=== PATIENT | female | born 1945 | race Caucasian/White ===

== ENCOUNTER 2016-12-24 07:25 | Day surgery (SDC) | payer MEDICARE ==
[~2016-12-24 07:25] MED LIST: FENTANYL 250 MCG/5 ML AMP IV PRN; LACTATED RINGERS 1,000 ML IV SCH; LIDOCAINE Viscous 2% 15 ML UDCUP PO PRN; MIDAZOLAM HCL 5 MG/5 ML VIAL IV PRN
[2016-12-24] MEDS ORDERED: IV START KIT ONE (07:44)
[2016-12-24] MEDS ORDERED: LACTATED RINGERS 1,000 ML ONE (07:44)
[2016-12-24] MEDS ORDERED: MIDAZOLAM HCL 5 MG/5 ML VIAL ONE (08:35)
[2016-12-24] MEDS ORDERED: FENTANYL 100 MCG/2 ML VIAL ONE (08:35)
[2016-12-24] MEDS ORDERED: LIDOCAINE Viscous 2% 15 ML UDCUP ONE (08:35)
[2016-12-24 13:40] LABS: HELICOBACTER PYLORII DETECTION NEGATIVE (NEGATIVE)
--- NOTE | 2016-12-27 09:56 | SURGPATH ---
[facility] [address] [place] [id number] Patient Name: WES MACIEL MR#: [id number] : 1945 Gender: F Specimen #: [id number] Collected: 12/24/2016 Received: 12/26/2016 Reported: 12/27/2016 Submitting Phys: JUANY HERRING Copy To Phys: AMY CORTEZ [facility] Clinical History / Pre-Operative Diagnosis: Rule out gastritis Specimen Source / Surgical Procedure Performed: Antral biopsy Interpretation: ANTRUM, BIOPSY: - NO PATHOLOGIC ABNORMALITY Electronically Signed Out Jeff Manning M.D. Gross Description: The specimen is received in formalin labeled with the patient's name and "antrum ". The specimen consists of a single fragment of nicolas soft tissue, 0.4 cm in greatest dimension. Submitted in toto in one cassette FABIAN Gutierres Microscopic Description: Microscopic performed. 1: [id number] R10.9
== END 2016-12-24 10:00 | disposition home or self-care (01) ==
LOC: SDC 07:25
PROVIDERS: ATTEND Internal Medicine Gastroenterology
PROC: 0D748ZZ Dilation of Esophagogastric Junction, Via Natural or Artificial Opening Endoscopic (ICD-10-PCS; principal; 2016-12-24)
PROC: 0DB68ZX Excision of Stomach, Via Natural or Artificial Opening Endoscopic, Diagnostic (ICD-10-PCS; 2016-12-24)
DX: Q39.4 Esophageal web (principal); K29.70 Gastritis, unspecified, without bleeding; K29.80 Duodenitis without bleeding; I10 Essential (primary) hypertension; F32.9 Major depressive disorder, single episode, unspecified; M79.1 Myalgia; G25.81 Restless legs syndrome; Z79.82 Long term (current) use of aspirin
CPT/HCPCS: 87081; 43249; 43239; J3010; J2250; A9270; J7120